=== PATIENT | female | born 1995 | race Caucasian/White ===

== ENCOUNTER 2016-07-26 12:58 | Emergency (ER) | payer OTHER ==
--- NOTE | ~2016-07-26 | CR229 ---
[facility] A Service of [facility] & [facility] RADIOLOGY TEXT RESULTS PATIENT: FARRUKH JULES LOCATION: [facility] : [birth year] UNIT #: [id number] AGE: [address]: Talia Ozuna SEX: F ORDER DR: [id number] [facility] [address] [place], [place] [address] [id number] E MR#: [id number] Acc #: [id number] NAME: FARRUKH JULES : 1995 SEX: F STUDY DATE/TIME: 07/26/2016 UNIT: TX ROOM: STUDY DESCRIPTION: CR Shoulder Min 2 View Lt Attending Physician: Talia Ozuna P.A.-C. Ordering Physician: Talia Ozuna P.A.-C. Primary Care Physician: No Primary Care Physician MEDICAL IMAGING REPORT This report is preliminary unless electronic signature is present EXAM Left shoulder, 3 views, 07/26/2016, 1240 hours. HISTORY 20-year-old complaining of left arm and shoulder pain with numbness since this morning. No known injury. COMPARISON STUDIES Comparison chest film 05/02/2015. FINDINGS AP views in internal and external rotation and a scapular Y-view demonstrate no fracture or dislocation. There is a small bone island in the proximal humeral epiphysis, similar to prior study. IMPRESSION No acute fracture, dislocation, or soft tissue calcification. There is no change in the small benign bone island in the proximal humerus. Dictated by... Antonieta Saucedo M.D. THIS IS AN ELECTRONICALLY VERIFIED REPORT Antonieta Saucedo M.D. at 07/26/2016 6:54 PM JOSE/hamlet TD: 07/26/2016 15:43 JOB #: [id number] MEDICAL IMAGING REPORT [facility] A Service [facility] RADIOLOGY TEXT RESULTS PATIENT: FARRUKH JULES LOCATION: [facility] : [birth year] UNIT #: [id number] AGE: [address]: Talia Ozuna SEX: F ORDER DR: COPY
[~2016-07-26 12:58] MED LIST: ALBUTEROL 0.5ML INH; ALBUTEROL17 GM INH; AMOXICILLIN; AMOXICILLIN125 MG PO; AMOXICILLIN500 M1 PO; ASTHMANEX INH; BACTRIM DS TABL1 TA1 PO; CLEOCIN150 MG PO; EAR DROPS; EPIPEN0.3 MG/0.3 INJ; FLOXIN10 ML OT; IBUPROFEN PO; IBUPROFEN100 MG PO; KEFLEX PO; MOTRIN600 MG PO; NAPROXEN PO; NO MEDICATIONS; OMNICEF300 MG PO; PHENERGAN PO; PHENERGAN VC W120 M1 PO; PHENERGAN25 MG PO; SINGULAIR PO; SUDAFED PO; SYMBICORT80 INH; UNK INHALER; VOLTAREN75 MG PO; ZOFRAN ODT4 MG PO; ZOLAIR; [UNRECOGNIZED DRUG - OTHER]
== END 2016-07-26 13:20 | disposition home or self-care (01) ==
LOC: CFTX 12:58
DX: M25.512 Pain in left shoulder (principal); J45.909 Unspecified asthma, uncomplicated; G43.909 Migraine, unspecified, not intractable, without status migrainosus; Z98.890 Other specified postprocedural states; Z88.8 Allergy status to other drugs, medicaments and biological substances
CPT/HCPCS: 73030; 96372; 99283; J1885